=== PATIENT | female | born 1980 ===

== ENCOUNTER 2017-03-08 21:31 | Emergency (ER) | payer OTHER ==
--- NOTE | ~2017-03-08 | CT2 ---
[facility] A Service of [facility] RADIOLOGY TEXT RESULTS PATIENT: ESEQUIEL MOELLER LOCATION: JAMES : [birth year] UNIT #: [id number] AGE: [address]: Rene dAame MD SEX: F ORDER DR: [id number] [facility]. [place], [place] [address] [id number] MR#: [id number] Acc #: [id number] NAME: ESEQUIEL MOELLER : 1980 SEX: F STUDY DATE/TIME: 03/09/2017 0:11 UNIT: JAMES ROOM: STUDY DESCRIPTION: CT Abd and Pelv W Cont Attending Physician: Rene Adame M.D. Ordering Physician: Rene Adame M.D. Primary Care Physician: Primary Care Physician No MEDICAL IMAGING REPORT This report is preliminary unless electronic signature is present EXAM CT abdomen and pelvis with contrast HISTORY Right upper quadrant pain since . COMPARISON 06/04/2015 TECHNIQUE Axial 5-mm images were obtained through the abdomen and pelvis with IV contrast. The patient was given 100 mL of Isovue-370. This CT exam was performed with one or more of the following radiation dose reduction techniques: Automatic exposure control, adjustment of mA and/or kV according to patient size, and iterative reconstruction. FINDINGS Lung bases are clear. The liver, gallbladder, spleen, pancreas, adrenal glands and kidneys are normal in appearance. The bowel is normal. I do not see any evidence of appendicitis. The uterus and adnexal regions are normal except for a 3.3 cm right ovarian cyst. The bladder is normal. The bones are unremarkable. IMPRESSION 1. Roughly 3 cm right ovarian cyst. 2. No evidence of appendicitis or cholecystitis. 3. Otherwise, normal. STAT * RESULT [facility] A Service of [facility] RADIOLOGY TEXT RESULTS PATIENT: ESEQUIEL MOELLER LOCATION: [facility] : [birth year] UNIT #: [id number] AGE: [address]: Rene Adame MD SEX: F ORDER DR: Dictated by... Sami Black M.D. THIS IS AN ELECTRONICALLY VERIFIED REPORT Sami Black M.D. at 03/09/2017 4:28 AM FEL/psc TD: 03/09/2017 00:30 JOB #: [id number] MEDICAL IMAGING REPORT Page 1 of 1 COPY
[2017-03-08 18:33] LABS: BASOPHIL# 0.1 X10e3 (0-0.3); BASOPHIL% 1.1 % (0-2.5); EOSINOPHIL# 0.2 X10e3 (0-0.7); EOSINOPHIL% 2.4 % (0.0-7.0); HEMATOCRIT 38.6 % (35.0-45.0); HEMOGLOBIN 12.7 gm/dL (12.0-16.0); LYMPHOCYTE# 2.4 X10e3 (1.0-3.5); LYMPHOCYTE% 24.6 % (17.0-45.0); MEAN CELL VOLUME 81.9 FL (83-96); MEAN CORPUSCULAR HEMOGLOBIN 26.9 PG (28-34); MEAN CORPUSCULAR HGB CONC 32.9 g/dL (30-36); MEAN PLATELET VOLUME 9.3 FL (6.5-11.5); MONOCYTE% 9.8 % (3.0-12.0); NEUTROPHIL# 6.1 X10e3 (1.5-7.1); NEUTROPHIL% 62.1 % (40-75); PLATELET COUNT 244 X10e3 (140-420); RED BLOOD COUNT 4.71 X10e (3.90-5.30); RED CELL DISTRIBUTION WIDTH 13.6 % (11.0-15.5); WHITE BLOOD COUNT 9.8 X10e3 (4.0-10.5)
[2017-03-08 18:34] LABS: DIFF IND NO
[2017-03-08 19:04] LABS: ALBUMIN SERUM 3.9 g/dL (3.5-5.0); ALKALINE PHOSPHATASE 45 U/L (32-92); ALT (SGPT) 18 U/L (10-40); AST (SGOT) 22 U/L (10-42); BILIRUBIN,TOTAL 0.6 mg/dL (0.2-2.0); BLOOD UREA NITROGEN 9 mg/dL (9-23); BUN/CREATININE RATIO 11.25; CALCIUM SERUM 9.4 mg/dL (8.4-10.2); CARBON DIOXIDE 25 mmol/L (22-31); CHLORIDE 107 mmol/L (100-111); CREATININE SERUM 0.8 mg/dL (0.6-1.4); GLOM FILT RATE Estimated 95.6 mL/min (>60); GLUCOSE FASTING 106 mg/dL (70-110); LIPASE 20 U/L (22-51); POTASSIUM 3.8 mmol/L (3.5-5.1); PROTEIN TOTAL SERUM 7.6 g/dL (6.0-8.3); SODIUM 140 mmol/L (135-145)
[2017-03-08 19:06] LABS: BILIRUBIN, DIRECT <0.1 mg/dL (0.0-0.2); BILIRUBIN,INDIRECT 0.5 mg/dL (0.0-0.9)
[2017-03-08 23:02] LABS: URINE SOURCE CLEAN CATCH
[2017-03-08 23:07] LABS: URINE APPEARANCE CLEAR; URINE BILIRUBIN NEG (NEG); URINE BLOOD 1+ (NEG); URINE COLOR YELLOW; URINE GLUCOSE NEG (NEG); URINE KETONE NEG (NEG); URINE LEUKOCYTE ESTERASE 3+ (NEG); URINE NITRATE NEG (NEG); URINE PROTEIN NEG (NEG); URINE SPECIFIC GRAVITY 1.011 (1.003-1.035); URINE UROBILINOGEN 0.2 MG/DL (NEG)
[2017-03-08 23:09] LABS: CULTURE INDICATED? YES; URINE BACTERIA AUWI NEG (NEGATIVE); URINE SQUAMOUS EPITHELIAL CELL OCC /[HPF]; UWBCS1 AUWI 50-100 (0-5)
== END 2017-03-09 01:05 | disposition home or self-care (01) ==
LOC: CED 21:31
DX: N39.0 Urinary tract infection, site not specified (principal)
CPT/HCPCS: 36415; 74177; 80048; 80076; 81003; 83690; 84703; 85025; 87086; 96374; 99284; J1885; Q9967